=== PATIENT | male | born 2000 | race Two or more races ===

== ENCOUNTER 2022-02-08 21:54 | Emergency (ER) | payer MEDICAID, OTHER ==
[~2022-02-08] VITALS: Ht 172.7 cm; Wt 70.0 kg
[2022-02-08 22:03] VITALS: BP 153/80
== END 2022-02-08 22:15 | disposition left against medical advice (07) ==
LOC: EDBD 21:54 → ER 21:57
DX: R10.9 Unspecified abdominal pain (principal); F19.239 Other psychoactive substance dependence with withdrawal, unspecified; Z53.21 Procedure and treatment not carried out due to patient leaving prior to being seen by health care provider